=== PATIENT | female | born 2000 | race Caucasian/White ===

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

== ENCOUNTER 2020-12-01 19:36 | Emergency (ER) | payer OTHER, BC ==
[~2020-12-01] VITALS: Ht 165.1 cm; Wt 77.0 kg
[2020-12-01 19:46] VITALS: BP 121/65
--- NOTE | 2020-12-01 20:06 | ED Upper Extremity ---
General Chief Complaint: Laceration Stated Complaint: R 2ND FINGER INJ Nursing Triage Note: PT TO ED FROM WORK. 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 BLEEDING CONTROLLED WITH DRESSING IN PLACE. 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 Her vaccinations are up-to-date. Onset: just prior to arrival Severity: mild Pain/Injury Location: left 2nd finger Method of Injury: fell Modifying Factors: Worse With Movement Allergies and Home Medications Allergies Coded Allergies: No Known Drug Allergies (Unverified , 11/24/18) Patient Home Medication List Home Medication List Reviewed: Yes Review of Systems Constitutional: see HPI EENTM: see HPI Respiratory: no symptoms reported Cardiovascular: no symptoms reported Genitourinary: no symptoms reported Musculoskeletal: no symptoms reported Skin: no symptoms reported Psychiatric/Neurological: No Symptoms Reported Past Hxafiow-Pyqwck-Ymwmvb Hx Patient Social History Alcohol Use: Occasionally Uses Drug of Choice: MARIJUANA Smoking Status: Current Everyday Smoker Type Used: Electronic/Vapor 2nd Hand Smoke Exposure: No Recent Infectious Disease Expo: No Recent Hopitalizations: No Seasonal Allergies Seasonal Allergies: No Past Medical History Surgeries: No Respiratory: No Cardiac: No Neurological: No Reproductive Disorders: No Genitourinary: No Gastrointestinal: No Musculoskeletal: No Endocrine: No HEENT: No Cancer: No Psychosocial: No Integumentary: Yes (HX OF CHICKEN POX AND SHINGLES.) Blood Disorders: No Physical Exam Vital Signs Vital Signs - First Documented 12/01/20 19:46 Pulse 67 Resp 18 B/P (MAP) 121/65 (83) Pulse Ox 100 O2 Delivery Room Air Capillary Refill : Less Than 3 Seconds Height, Weight, BMI Height: 5'5.00" Weight: 155lbs. oz. 70.533058xg; 28.00 BMI Method:Stated General Appearance: WD/WN, no apparent distress HEENT: PERRL/EOMI, normal ENT inspection Respiratory: no respiratory distress, no accessory muscle use Shoulder: normal inspection, non-tender Wrist: Yes normal inspection, Yes non-tender Hand: Right, laceration (2 x 3 mm avulsion of skin from the pad of the finger. Nothing to suture. Cleansed with chlorhexidine/saline solution and covered with Dermabond.) Neurologic/Psychiatric: alert, normal mood/affect, oriented x 3 Skin: normal color, warm/dry Progress/Results/Core Measures Results/Orders Vital Signs/I&O 12/01/20 19:46 Pulse 67 Resp 18 B/P (MAP) 121/65 (83) Pulse Ox 100 O2 Delivery Room Air Blood Pressure Mean: 83 Departure Impression Primary Impression: Skin avulsion Disposition: HOME, SELF-CARE Condition: Stable Departure-Patient Inst. Decision time for Depature: 20:06 Referrals: LILLIAN HARE MD (PCP/Family) Primary Care Physician Patient Instructions: SKIN AVULSION Add. Discharge Instructions: 1. Leave the glue in place until it falls off on its own. Return to ER for any worsening. All discharge instructions reviewed with patient and/or family. Voiced understanding. SILVER [employer]ARKER ANALYST [employer] Dec 01, 2020 20:06
== END 2020-12-01 20:14 | disposition home or self-care (01) ==
LOC: EDUNIT# 19:36 → ER 19:39
DX: S61.301A Unspecified open wound of left index finger with damage to nail, initial encounter (principal); F17.290 Nicotine dependence, other tobacco product, uncomplicated; W29.0XXA Contact with powered kitchen appliance, initial encounter; Y99.0 Civilian activity done for income or pay
CPT/HCPCS: 99282

== ENCOUNTER 2023-04-08 20:45 | Emergency (ER) | payer OTHER ==
[~2023-04-08] VITALS: Ht 65 cm; Wt 81.6 kg
--- NOTE | 2023-04-08 21:27 | ED Upper Extremity ---
General Chief Complaint: Laceration Stated Complaint: LACERATION LEFT THUMB Source: patient Exam Limitations: no limitations (NEGRO BURNS) History of Present Illness Date Seen by Provider: Apr 08, 2023 Time Seen by Provider: 21:28 Initial Comments Patient is a 22-year-old female presents ED with a laceration to her left thumb. This occurred about 30 minutes ago. She was using a steak knife when it slipped resulting in a laceration to the distal tip of her left thumb. She applied a rubber band and applied gauze due to the bleeding. Bleeding controlled. Normal range of motion. Not up-to-date her tetanus within the past 5 years. She reports some numbness and tingling distally. She was able to move her thumb. (NEGRO BURNS) Allergies and Home Medications Allergies Coded Allergies: No Known Drug Allergies (Unverified , 11/24/18) Patient Home Medication List Home Medication List Reviewed: Yes (NEGRO BURNS) Review of Systems Constitutional: No chills, No diaphoresis EENTM: No ear pain, No blurred vision, No mouth pain, No mouth swelling, No nose pain, No throat pain, No throat swelling Respiratory: No cough, No dyspnea on exertion Cardiovascular: No chest pain, No edema Gastrointestinal: No abdominal pain, No diarrhea, No nausea, No vomiting Genitourinary: No decreased output, No discharge Musculoskeletal: No back pain, No joint pain Skin: change in color; No change in hair/nails; other (Laceration) (NEGRO BURNS) All Other Systems Reviewed Negative Unless Noted: Yes (NEGRO BURNS) Past Dtdtfda-Nzxigy-Qsfood Hx Seasonal Allergies Seasonal Allergies: No (NEGRO BURNS) Past Medical History Surgeries: No Respiratory: No Cardiac: No Neurological: No Reproductive Disorders: No Genitourinary: No Gastrointestinal: No Musculoskeletal: No Endocrine: No HEENT: No Cancer: No Psychosocial: No Integumentary: Yes (HX OF CHICKEN POX AND SHINGLES.) Blood Disorders: No (NEGRO BURNS) Physical Exam Vital Signs Vital Signs - First Documented 04/08/23 21:19 Temp 36.2 Pulse 63 Resp 15 B/P (MAP) 121/77 (92) Pulse Ox 99 O2 Delivery Room Air (CLAIRE ACEVEDO DO) Vital Signs Capillary Refill : (NEGRO BURNS) Height, Weight, BMI Height: 5'5.00" Weight: 155lbs. oz. 70.697013on; 28.00 BMI Method:Stated General Appearance: WD/WN, no apparent distress HEENT: PERRL/EOMI, normal ENT inspection, TMs normal, pharynx normal Neck: non-tender, full range of motion, supple Cardiovascular: regular rate, rhythm, no edema, no gallop, no JVD Respiratory: chest non-tender, lungs clear, normal breath sounds, no respiratory distress, no accessory muscle use Gastrointestinal: normal bowel sounds, non tender, soft, no organomegaly Back: normal inspection, no CVA tenderness Shoulder: normal inspection, non-tender, no evidence of injury Elbow/Forearm: normal inspection, non-tender, no evidence of injury, normal ROM, Left Wrist: Yes normal inspection, Yes non-tender, Yes no evidence of injury Hand: normal inspection, non-tender, laceration (Small skin avulsion left thumb) 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 No active bleeding. No nail involvement.) (NEGRO BURNS) Departure Communication (PCP) Patient has a skin avulsion to the left thumb. No skin to approximate. Sutures were not needed. Irrigated with normal saline and Shur cleans. Topical Neosporin was applied. Discussed wound care. Provided splint. Updated her tetanus. If increased redness or swelling to return back to ED. Follow-up with PCP in 2 to 3 days for reevaluation (NEGRO BURNS) Impression Primary Impression: Avulsion of skin of thumb Disposition: 01 HOME, SELF-CARE Condition: Stable Departure-Patient Inst. Decision time for Depature: 21:29 (NEGRO BURNS) Referrals: LILLIAN HARE MD (PCP/Family) Primary Care Physician Patient Instructions: SKIN AVULSION Add. Discharge Instructions: Apply topical Neosporin twice a day. Keep the area covered. If increased redness or swelling to return back to ED All discharge instructions reviewed with patient and/or family. Voiced understanding. ATTENDING PHYSICIAN NOTE: I WAS PHYSICALLY PRESENT ER PHYSICIAN, BUT I WAS NOT INVOLVED IN ANY DECISION MAKING OR ANY CARE OF THIS PATIENT, AND I AM NOT COLLABORATING PHYSICIAN. (CLAIRE ACEVEDO DO) NEGRO BURNS Apr 08, 2023 21:27 CLAIRE ACEVEDO DO Apr 09, 2023 19:15
[2023-04-08] MEDS ORDERED: Tetanus/Diphtheria/Pertussis (Acell) ADULT Vaccine 0.5 ML IM ONE (21:30)
[2023-04-08 21:40] VITALS: BP 121/77
== END 2023-04-08 21:40 | disposition home or self-care (01) ==
LOC: EDUNIT# 20:45 → ER 20:52
DX: S61.002A Unspecified open wound of left thumb without damage to nail, initial encounter (principal); Z23 Encounter for immunization; W26.0XXA Contact with knife, initial encounter
CPT/HCPCS: 90471; 99282